=== PATIENT | male | born 2000 | race Caucasian/White ===

== ENCOUNTER → 2022-09-16 | Outpatient (CLI) | payer BC, OTHER ==
--- NOTE | 2022-09-16 14:55 | Diagnostic Imaging Report ---
INDICATION: Pain after ankle injury. EXAMINATION: Left ankle, 3 views, on 09/16/2022. FINDINGS: There is soft tissue swelling. No fracture is appreciated. Questionable medial ankle mortise widening, however, is noted on the 1st view. IMPRESSION: Soft tissue swelling with questionable widening of the medial ankle mortise, correlate with physical examination. Dictated by: Dictated on workstation # [id number]
== END ==
LOC: RAD FS 13:31
PROVIDERS: ATTEND Nurse Practitioner
DX: M25.472 Effusion, left ankle (principal); S99.912A Unspecified injury of left ankle, initial encounter; X58.XXXA Exposure to other specified factors, initial encounter
CPT/HCPCS: 73610